=== PATIENT | female | born 1980 | race African-American/Black ===

== ENCOUNTER 2022-07-29 10:22 | Inpatient (IN) ==
[2022-07-28 12:48] LABS: Basophils % 0.4 % (0.0-0.8); Eosinophils # 0.2 10*3/uL (0.0-0.87); Eosinophils % 2.2 % (0.00-10.9); Hemoglobin 12.4 GM/DL (12.0-16.0); Immature Granulocytes % 0.1 %; Immature Granulocytes Absolute 0.01 #; Lymphocytes # 2.5 10*3/uL (1.4-4.0); Lymphocytes % 37.6 % (21.3-54.2); Mean Corpuscular Volume 80.8 FL (87-102); Mean Platelet Volume 10.6 FL (9.6-12.0); Monocytes # 0.4 10*3/uL (0.11-0.8); Monocytes % 6.2 % (1.7-12.7); Neutrophils % 53.5 % (38.7-73.9); Platelet Count 204 T/CUMM (130-400); Red Blood Count 4.95 MC/CUMM (3.8-5.5); Red Cell Distribution Width 15.4 % (9.3-17.3); White Blood Count 6.7 T/CUMM (4-12)
[2022-07-28 12:53] LABS: Mucus,Urine Many /LPF (Occasional); Squamous Epithelial Cell,Urine Occasional /HPF (0-10)
[2022-07-28 12:54] LABS: Bilirubin,Urine Negative (Negative); Blood, Urine Negative (Negative); Glucose,Urine (UA) Negative (Negative); Ketones,Urine Negative (Negative); Nitrite,Urine Negative (Negative); Protein,Urine Negative (Negative); Urine Appearance Clear (Clear); Urine Color Yellow (Yellow); Urine Specific Gravity > 1.030 (1.001-1.035); Urine Urobilinogen 0.2 eU/dL (<2.0)
[2022-07-28 13:21] LABS: Albumin 3.7 G/DL (3.4-5.0); Bilirubin,Total 0.4 MG/DL (0.20-1.00); Calcium 8.7 MG/DL (8.5-10.1); Osmolality,Calculated 279.3 MOS/KG (273-304); Potassium 3.9 MMOL/L (3.5-5.1); Risk Ratio 3.04; Total Protein 6.8 G/DL (6.4-8.2)
[2022-07-28 13:48] LABS: HIV Antigen/Antibody Result Nonreactive (Nonreactive)
[~2022-07-29 10:22] MED LIST: AMPICILLIN/SULBACTAM 3,000 MG in SODIUM CHLORIDE 0.9% 100 ML IV ONE
[2022-07-29] MEDS ORDERED: ACETAMINOPHEN 500 MG TABLET PO ONE (10:46)
[2022-07-29] MEDS ORDERED: GABAPENTIN 400 MG CAPSULE PO ONE (10:46)
[2022-07-29] MEDS ORDERED: FAMOTIDINE 20 MG TABLET PO ONE (10:46)
[2022-07-29] MEDS ORDERED: DIAZEPAM 5 MG TABLET PO ONE (10:46)
[2022-07-29] MEDS ORDERED: LACTATED RINGERS 1,000 ML IV SCH (11:00)
[2022-07-29] MEDS ORDERED: DEXMEDETOMIDINE 200 MCG/2 ML VIAL ONE (13:41)
[2022-07-29] MEDS ORDERED: DEXAMETHASONE 4 MG/1 ML VIAL ONE (13:41)
[2022-07-29] MEDS ORDERED: ROPIVACAINE 0.5% 30 ML VIAL ONE (13:41)
[2022-07-29] MEDS ORDERED: LIDOCAINE 1% 5 ML VIAL ONE (13:41)
[2022-07-29] MEDS ORDERED: fentaNYL 100 MCG/2 ML VIAL ONE (14:06)
[2022-07-29] MEDS ORDERED: DESFLURANE 1 UNIT/15 MINUTE INH ONE (14:35)
[2022-07-29] MEDS ORDERED: LIDOCAINE 2% 5 ML VIAL ONE (14:35)
[2022-07-29] MEDS ORDERED: ONDANSETRON 4 MG/2 ML VIAL ONE (14:35)
[2022-07-29] MEDS ORDERED: ROCURONIUM 50 MG/5 ML VIAL IV ONE (14:35)
[2022-07-29] MEDS ORDERED: propofoL 200 MG/20 ML VIAL IV ONE (14:35)
[2022-07-29] MEDS ORDERED: GLYCOPYRROLATE 0.4 MG/2 ML VIAL ONE (15:25)
[2022-07-29] MEDS ORDERED: NEOSTIGMINE 10 MG/10 ML VIAL ONE (15:25)
[2022-07-29] MEDS ORDERED: BISACODYL 10 MG SUPP RECTAL PRN (16:00)
[2022-07-29] MEDS ORDERED: BENZOCAINE/MENTHOL LOZENGE 18/BOX PO PRN (16:00)
[2022-07-29] MEDS ORDERED: MAGNESIUM HYDROXIDE SUSP 30 ML UDCUP PO PRN (16:00)
[2022-07-29] MEDS ORDERED: ACETAMINOPHEN 325 MG TABLET PO PRN (16:00)
[2022-07-29] MEDS ORDERED: ONDANSETRON 4 MG/2 ML VIAL IV PRN (16:00)
[2022-07-29 16:13] LABS: Bilirubin,Urine Negative (Negative); Blood, Urine Large mg/dL (Negative); Glucose,Urine (UA) Negative (Negative); Ketones,Urine Negative (Negative); Nitrite,Urine Negative (Negative); Protein,Urine Negative (Negative); Urine Appearance Clear (Clear); Urine Color Yellow (Yellow); Urine Specific Gravity >= 1.030 (1.001-1.035); Urine Urobilinogen 0.2 eU/dL (<2.0); Urine pH 6.5 (4.5-8.0)
[2022-07-29 16:17] LABS: Bacteria,Urine Occasional /HPF (Few); Mucus,Urine Few /LPF (Occasional); RBC,Urine 129 /HPF (0-4); Squamous Epithelial Cell,Urine Occasional /HPF (0-10)
[2022-07-29] MEDS ORDERED: HYDROmorphone 1 MG/1 ML SYRINGE IV PRN ×2 (16:27→17:26)
[2022-07-29] MEDS ORDERED: HYDROmorphone 1 MG/1 ML SYRINGE ONE (16:30)
[2022-07-29] MEDS: LACTATED RINGERS 1,000 ML IV SCH (16:40)
[2022-07-29] MEDS: IBUPROFEN 800 MG TABLET PO PRN (17:36)
[2022-07-30] MEDS: LACTATED RINGERS 1,000 ML IV SCH (02:07)
[2022-07-30] MEDS: IBUPROFEN 800 MG TABLET PO PRN ×2 (04:37→13:18)
[2022-07-30] MEDS: DOCUSATE SODIUM 100 MG CAPSULE PO PRN ×3 (04:38→21:52)
[2022-07-30 05:05] LABS: Basophils % 0.2 % (0.0-0.8); Hematocrit 37.5 VOL% (35.7-47.0); Hemoglobin 11.5 GM/DL (12.0-16.0); Immature Granulocytes % 0.3 %; Immature Granulocytes Absolute 0.04 #; Lymphocytes # 1.5 10*3/uL (1.4-4.0); Lymphocytes % 11.6 % (21.3-54.2); Mean Corpuscular HGB Conc 30.7 GM/DL (32-36); Mean Corpuscular Volume 80.5 FL (87-102); Mean Platelet Volume 10.9 FL (9.6-12.0); Monocytes # 0.5 10*3/uL (0.11-0.8); Monocytes % 4.2 % (1.7-12.7); Neutrophils % 83.7 % (38.7-73.9); Platelet Count 199 T/CUMM (130-400); Red Blood Count 4.66 MC/CUMM (3.8-5.5); White Blood Count 12.5 T/CUMM (4-12)
[2022-07-30] MEDS: LEVOTHYROXINE 25 MCG TABLET PO SCH (06:44)
[2022-07-30] MEDS ORDERED: SIMETHICONE CHEW 80 MG TABLET PO PRN (09:26)
[2022-07-30] MEDS: ENOXAPARIN 40 MG/0.4 ML SYRINGE SUBCUT SCH (09:30)
[2022-07-30] MEDS: METOCLOPRAMIDE 10 MG TABLET PO SCH ×2 (09:30→17:04)
[2022-07-31] MEDS: METOCLOPRAMIDE 10 MG TABLET PO SCH ×3 (06:53→10:06)
[2022-07-31] MEDS: LEVOTHYROXINE 25 MCG TABLET PO SCH (07:03)
[2022-07-31] MEDS: ENOXAPARIN 40 MG/0.4 ML SYRINGE SUBCUT SCH (09:58)
[2022-07-31 12:45] VITALS: BP 94/52
== END 2022-07-31 11:55 | disposition home or self-care (01) | DRG 743 ==
LOC: N.OR 10:22 → N.SDSINP 10:34 → N.OB 15:59
PROVIDERS: ADMIT Obstetrics & Gynecology; ATTEND Obstetrics & Gynecology